=== PATIENT | female | born 1975 | race Caucasian/White ===

== ENCOUNTER 2024-12-05 20:34 | Emergency (ER) | payer MEDICARE, MEDICAID, SELFPAY ==
[2024-12-05] VITALS (20 sets, daily range): BP systolic 140–195; BP diastolic 66–126; PULSE 60–93; RESP 12–34; O2SAT 91–100
--- NOTE | 2024-12-05 20:30 | RT.EKG_ITS ---
APPROVED REPORT Exam: Resting ECG Reason for Exam: SOB Patient Location: E HR:62 bpm ECG Measurements Heart Rate 62 AXIS ND 148 P 64 QRSd 86 QRS 0 QT 431 T [id number] QTc 439 Conclusion Sinus rhythm 62 normal axis no stemi
--- NOTE | 2024-12-05 20:45 | DI.RAD_ITS ---
Exam(s) XR CHEST 2V PA LATERAL EXAM: XR CHEST 2V PA LATERAL CLINICAL HISTORY: dyspnea. TECHNIQUE: 2D digital imaging was performed. COMPARISON: No exams were available for comparison FINDINGS: 2 views: Heart size is normal. The mediastinum is not widened. Left lung is clear. There is some mild infiltrate in the lower right lung field. This measures appr oximately 4 by 2 cm. There are no pleural effusions. IMPRESSION: Suspicion for infiltrate nor right lung hall probably right middle lobe. There are no pleural effu sions. DATA REPOSITORY: RADIATION DOSE DELIVERED:
[2024-12-05] MEDS: Albuterol/Ipratropium 3 ML UPD VIAL (20:58)
[2024-12-05] MEDS: Albuterol/Ipratropium 3 ML UPD VIAL 9 ML UPD (20:58)
[2024-12-05 21:01] LABS: BE (Venous) 6 mmol/L (-2-3); HCO3 (Venous) 30 mmol/L (23-28); O2 Sat (Venous) 77 %; TCO2 (Venous) 26 mmol/L (24-29); pCO2 (Venous) 42 mmHg (41-51); pH (Venous) 7.46 (7.31-7.41); pO2 (Venous) 39 mmHg
[2024-12-05 21:03] LABS: Abs Immature Grans 0.02 10^3/uL (0.0-0.06); Absolute Basophil Count 0.05 10^3/uL (0.0-0.2); Absolute Eosinophil Count 0.68 10^3/uL (0.0-0.7); Absolute Lymphocyte Count 2.41 10^3/uL (1.2-3.4); Absolute Monocyte Count 0.72 10^3/uL (0.1-0.8); Absolute Neutrophil Count 5.57 10^3/uL (1.2-6.7); Basophils % 0.5 %; Eosinophils % 7.2 %; HCT 40.9 % (36.0-46.0); HGB 13.5 g/dL (11.2-15.7); Immature Grans % 0.2 %; Lymphocytes % 25.5 %; MCH 29.6 pg (27.0-33.0); MCV 90 fL (80-95); MPV 9.5 fL (8.0-11.0); Monocytes % 7.6 %; Platelet Count 306 10^3/uL (130-400); RBC 4.56 10^6/uL (3.93-5.22); RDW 14.1 % (11.7-14.6); RDW-SD 46.6 fL; WBC 9.45 10^3/uL (4.4-10.8)
[2024-12-05] MEDS: Normal Saline 1,000 ML 1000 ML IV (21:08)
[2024-12-05] MEDS: Albuterol/Ipratropium 3 ML UPD VIAL UPD (21:08)
[2024-12-05] MEDS: methylPREDNISolone SUCC 125 MG VIAL 80 MG IVP (21:08)
[2024-12-05 21:30] LABS: ALT 20 U/L (14-59); AST 12 U/L (15-37); Albumin 3.7 g/dL (3.4-5.0); Alkaline Phosphatase 100 U/L (46-116); Anion Gap 7.2 mmol/L (3-11); BUN 9 mg/dL (7-18); Bilirubin, Total 0.3 mg/dL (0.2-1.0); CO2 30.8 mmol/L (21.0-32.0); CREATININE 0.7 mg/dL (0.55-1.02); Calcium 9.1 mg/dL (8.5-10.1); Chloride 101 mmol/L (98-107); Estimated GFR 107.28 (mL/min/1.73m2); Glucose 102 mg/dL (74-106); NT-proBNP 46 pg/mL (<300); Potassium 4.3 mmol/L (3.5-5.1); Sodium 139 mmol/L (136-145); TSH (W/Ref FT4) 1.75 uIU/mL (0.36-3.74); Total Protein 7.5 g/dL (6.4-8.2); Troponin I 5 ng/L (<or=51)
[2024-12-05 21:30] LABS: COVID-19 PCR Negative (Negative); Influenza A PCR Negative (Negative); Influenza B PCR Negative (Negative); RSV PCR Negative (Negative)
[2024-12-05 21:31] LABS: Source Nasopharynx
[2024-12-05 21:40] LABS: ETHANOL BLOOD < 3.0 mg/dL (<10)
[2024-12-05] MEDS: ACETAMINOPHEN 1,000 MG/100 ML BTL 400 MG IVPB (22:02)
[2024-12-05] MEDS: LORazepam 20 MG/10 ML VIAL IVP (22:02)
--- NOTE | 2024-12-05 22:04 | DI.VRAD_ITS ---
PROCEDURE INFORMATION: Exam: XR Chest Exam date and time: 12/05/2024 9:28 PM Age: 49 years old Clinical indication: Dyspnea TECHNIQUE: Imaging protocol: Radiologic exam of the chest. Views: 2 views. COMPARISON: No relevant prior studies available. FINDINGS: Lungs: Unremarkable. No consolidation. Pleural spaces: Unremarkable. No pleural effusion. No pneumothorax. Heart/Mediastinum: Unremarkable. No cardiomegaly. Bones/joints: Mild degenerative disease of bilateral acromioclavicular joints. IMPRESSION: No acute cardiopulmonary process. Dictated and Authenticated by: Monty Goins MD. Orderin Lurdes Aleman MD
[2024-12-05 22:34] LABS: Troponin I 4 ng/L (<or=51)
[2024-12-05] MEDS: Albuterol HFA 8 GM 60 PUFF INH IH (23:16)
[2024-12-05] MEDS: Doxycycline Hyclate 100 MG, 2 CAPS/BTL PO (23:16)
[2024-12-05] MEDS: guaiFENesin/CODEINE PHOSPHATE 10 ML CUP PO (23:17)
--- NOTE | 2024-12-05 23:20 | ED.GENADUL_ITS ---
Discharge Plan Disposition Patient Disposition: Home Condition: Stable Discharge Details Clinical Impression: Acute exacerbation of chronic obstructive pulmonary disease (COPD) Primary Care Provider: Francisco Bishop ED Provider: Love Chatman Home Meds and New Rx's Prescriptions: New Asmanex HFA 100 mcg/actuation HFA aerosol inhaler 2 puff inhalation BID Qty: 13 0RF albuterol sulfate 90 mcg/actuation HFA aerosol inhaler 2 puff inhalation Q6H PRNQty: 8.5 0RF prednisone 20 mg tablet 40 mg PO ONCE Qty: 10 0RF lisinopril 20 mg tablet 20 mg PO DAILY Qty: 30 0RF doxycycline monohydrate 100 mg capsule 100 mg PO BID Qty: 20 0RF Discharge Instructions Instructions: COPD Exacerbation, Adult ED Additional Instructions: Try to stop smoking as this can prevent episodes such as this Take the antibiotic as prescribed Take the inhaler albuterol 2 puffs every 4 hours with spacer Use the Asmanex 2 puffs twice daily Reinitiate your lisinopril Take the prednisone daily until completed Follow-up with [facility] tomorrow and I have placed you on a referral list to establish with a primary care physician HPI General Date/Time Provider Initiated Documentation: 12/05/24 20:46 . HPI Narrative: 49-year-old female with COPD and hypertension presents with shortness of breath. Off all inhalers for 3 months, no primary care, homeless, continues to vape tobacco. Occasional alcohol use, had a couple of drinks today. No chance of . Reports cough attributed to upper respiratory infection. Chest pain with deep breathing, described as burning. No fever, chills, sick contacts, calf pain/swelling, coagulopathy, recent flights, surgeries, or long drives. Related Data Home Medications ?Medication ?Instructions ?Recorded ?Confirmed albuterol sulfate 90 mcg/actuation 2 puff inhalation Q6H PRN #8.5 12/05/24 aerosol inhaler grams doxycycline monohydrate 100 mg 100 mg PO BID #20 caps 12/05/24 capsule lisinopril 20 mg tablet 20 mg PO DAILY #30 tabs 12/05/24 mometasone 100 mcg/actuation HFA 2 puff inhalation BID #13 grams 12/05/24 aerosol inhaler (Asmanex HFA) prednisone 20 mg tablet 40 mg (2 x 20 mg) PO ONCE #10 tabs 12/05/24 Previous Rx's ?Medication ?Instructions ?Recorded albuterol sulfate 90 mcg/actuation 2 puff inhalation Q6H PRN #8.5 12/05/24 aerosol inhaler grams doxycycline monohydrate 100 mg 100 mg PO BID #20 caps 12/05/24 capsule lisinopril 20 mg tablet 20 mg PO DAILY #30 tabs 12/05/24 mometasone 100 mcg/actuation HFA 2 puff inhalation BID #13 grams 12/05/24 aerosol inhaler (Asmanex HFA) prednisone 20 mg tablet 40 mg (2 x 20 mg) PO ONCE #10 tabs 12/05/24 General Stated Complaint: SOB ESTELA: 3 Exam Narrative Exam Narrative: General Appearance: Alert and oriented. Vital signs: Respiratory rate 21, oxygen saturation 99%, temperature 36.9?C at 2300 hours, blood pressure 170/80. HEENT: Within normal limits. Respiratory: Scant scattered wheezes. Cardiovascular: Within normal limits. Gastrointestinal: Within normal limits. Genitourinary: Within normal limits. Lymphatic: Within normal limits. Back, Musculoskeletal: Reproducible chest wall tenderness. Extremities: No peripheral edema. Skin: Warm and dry, no rash. Neurological: Normal. Course Vital Signs Vital signs: Vital Signs Pulse 76 12/05/24 20:41 Respiratory Rate 34 H 12/05/24 20:41 Blood Pressure 195/126 H 12/05/24 20:41 Pulse Oximetry 100 12/05/24 20:41 Pulse 93 H 12/05/24 22:31 Pulse 93 H 12/05/24 22:40 Respiratory Rate 28 H 12/05/24 22:40 Respiratory Effort Short of Breath 12/05/24 20:44 Respiratory Depth Deep 12/05/24 20:44 Respiratory Pattern Normal 12/05/24 20:44 Blood Pressure 171/86 H 12/05/24 22:31 Blood Pressure Mean 113 12/05/24 22:31 Blood Pressure Position Sitting 12/05/24 20:41 Pulse Oximetry 99 12/05/24 22:31 Oxygen Delivery Method Room Air 12/05/24 20:41 Oxygen Flow Rate 0 12/05/24 20:41 Lab/Test Results Lab/Test Results: Laboratory Tests Range/Units 12/05/24 12/05/24 12/05/24 20:48 20:51 20:54 WBC (4.4-10.8) 10^3/uL 9.45 RBC (3.93-5.22) 10^6/uL 4.56 Hgb (11.2-15.7) g/dL 13.5 Hct (36.0-46.0) % 40.9 MCV (80-95) fL 90 MCH (27.0-33.0) pg 29.6 MCHC (32.0-36.0) % 33.0 RDW (11.7-14.6) % 14.1 Plt Count (130-400) 10^3/uL 306 MPV (8.0-11.0) fL 9.5 Immature Gran % % 0.2 Neutrophils % % 59.0 Lymphocytes % % 25.5 Monocytes % % 7.6 Eosinophils % % 7.2 Basophils % % 0.5 Nucleated RBC % (0.0-0.3) % 0.0 Absolute Neutrophils (1.2-6.7) 10^3/uL 5.57 Absolute Lymphocytes (1.2-3.4) 10^3/uL 2.41 Absolute Monocytes (0.1-0.8) 10^3/uL 0.72 Absolute Eosinophils (0.0-0.7) 10^3/uL 0.68 Absolute Basophils (0.0-0.2) 10^3/uL 0.05 VBG pH (7.31-7.41) 7.46 H VBG pCO2 (41-51) mmHg 42 VBG pO2 mmHg 39 VBG HCO3 (23-28) mmol/L 30 H VBG Total CO2 (24-29) mmol/L 26 VBG O2 Saturation % 77 VBG Base Excess (-2-3) mmol/L 6 H Sodium (136-145) mmol/L 139 Potassium (3.5-5.1) mmol/L Chloride (98-107) mmol/L Carbon Dioxide (21.0-32.0) mmol/L Anion Gap (3-11) mmol/L BUN (7-18) mg/dL Creatinine (0.55-1.02) mg/dL Est GFR (CKD-EPI 2020) (mL/min/1.73m2) Glucose (74-106) mg/dL Calcium (8.5-10.1) mg/dL Total Bilirubin (0.2-1.0) mg/dL AST (15-37) U/L ALT (14-59) U/L Alkaline Phosphatase (46-116) U/L Troponin I (<or=51) ng/L NT-Pro-B Natriuret Pep (<300) pg/mL Total Protein (6.4-8.2) g/dL Albumin (3.4-5.0) g/dL TSH (0.36-3.74) uIU/mL Ethyl Alcohol (<10) mg/dL COVID-19 Source Nasopharynx Cancelled SARS-CoV-2 (PCR) (Negative) Negative Cancelled Influenza Type A (PCR) (Negative) Negative Cancelled Influenza Type B (PCR) (Negative) Negative Cancelled RSV (PCR) (Negative) Negative Cancelled Range/Units 12/05/24 12/05/24 12/05/24 20:54 20:54 20:54 WBC (4.4-10.8) 10^3/uL RBC (3.93-5.22) 10^6/uL Hgb (11.2-15.7) g/dL Hct (36.0-46.0) % MCV (80-95) fL MCH (27.0-33.0) pg MCHC (32.0-36.0) % RDW (11.7-14.6) % Plt Count (130-400) 10^3/uL MPV (8.0-11.0) fL Immature Gran % % Neutrophils % % Lymphocytes % % Monocytes % % Eosinophils % % Basophils % % Nucleated RBC % (0.0-0.3) % Absolute Neutrophils (1.2-6.7) 10^3/uL Absolute Lymphocytes (1.2-3.4) 10^3/uL Absolute Monocytes (0.1-0.8) 10^3/uL Absolute Eosinophils (0.0-0.7) 10^3/uL Absolute Basophils (0.0-0.2) 10^3/uL VBG pH (7.31-7.41) VBG pCO2 (41-51) mmHg VBG pO2 mmHg VBG HCO3 (23-28) mmol/L VBG Total CO2 (24-29) mmol/L VBG O2 Saturation % VBG Base Excess (-2-3) mmol/L Sodium (136-145) mmol/L Cancelled Potassium (3.5-5.1) mmol/L 4.3 Cancelled Chloride (98-107) mmol/L 101 Cancelled Carbon Dioxide (21.0-32.0) mmol/L 30.8 Anion Gap (3-11) mmol/L BUN (7-18) mg/dL Creatinine (0.55-1.02) mg/dL Est GFR (CKD-EPI 2020) (mL/min/1.73m2) Glucose (74-106) mg/dL Calcium (8.5-10.1) mg/dL Total Bilirubin (0.2-1.0) mg/dL AST (15-37) U/L ALT (14-59) U/L Alkaline Phosphatase (46-116) U/L Troponin I (<or=51) ng/L NT-Pro-B Natriuret Pep (<300) pg/mL Total Protein (6.4-8.2) g/dL Albumin (3.4-5.0) g/dL TSH (0.36-3.74) uIU/mL Ethyl Alcohol (<10) mg/dL COVID-19 Source SARS-CoV-2 (PCR) (Negative) Influenza Type A (PCR) (Negative) Influenza Type B (PCR) (Negative) RSV (PCR) (Negative) Range/Units 12/05/24 12/05/24 12/05/24 20:54 20:54 20:54 WBC (4.4-10.8) 10^3/uL RBC (3.93-5.22) 10^6/uL Hgb (11.2-15.7) g/dL Hct (36.0-46.0) % MCV (80-95) fL MCH (27.0-33.0) pg MCHC (32.0-36.0) % RDW (11.7-14.6) % Plt Count (130-400) 10^3/uL MPV (8.0-11.0) fL Immature Gran % % Neutrophils % % Lymphocytes % % Monocytes % % Eosinophils % % Basophils % % Nucleated RBC % (0.0-0.3) % Absolute Neutrophils (1.2-6.7) 10^3/uL Absolute Lymphocytes (1.2-3.4) 10^3/uL Absolute Monocytes (0.1-0.8) 10^3/uL Absolute Eosinophils (0.0-0.7) 10^3/uL Absolute Basophils (0.0-0.2) 10^3/uL VBG pH (7.31-7.41) VBG pCO2 (41-51) mmHg VBG pO2 mmHg VBG HCO3 (23-28) mmol/L VBG Total CO2 (24-29) mmol/L VBG O2 Saturation % VBG Base Excess (-2-3) mmol/L Sodium (136-145) mmol/L Potassium (3.5-5.1) mmol/L Chloride (98-107) mmol/L Carbon Dioxide (21.0-32.0) mmol/L Cancelled Anion Gap (3-11) mmol/L 7.2 Cancelled BUN (7-18) mg/dL 9 Cancelled Creatinine (0.55-1.02) mg/dL 0.7 Est GFR (CKD-EPI 2020) (mL/min/1.73m2) Glucose (74-106) mg/dL Calcium (8.5-10.1) mg/dL Total Bilirubin (0.2-1.0) mg/dL AST (15-37) U/L ALT (14-59) U/L Alkaline Phosphatase (46-116) U/L Troponin I (<or=51) ng/L NT-Pro-B Natriuret Pep (<300) pg/mL Total Protein (6.4-8.2) g/dL Albumin (3.4-5.0) g/dL TSH (0.36-3.74) uIU/mL Ethyl Alcohol (<10) mg/dL COVID-19 Source SARS-CoV-2 (PCR) (Negative) Influenza Type A (PCR) (Negative) Influenza Type B (PCR) (Negative) RSV (PCR) (Negative) Range/Units 12/05/24 12/05/24 12/05/24 20:54 20:54 20:54 WBC (4.4-10.8) 10^3/uL RBC (3.93-5.22) 10^6/uL Hgb (11.2-15.7) g/dL Hct (36.0-46.0) % MCV (80-95) fL MCH (27.0-33.0) pg MCHC (32.0-36.0) % RDW (11.7-14.6) % Plt Count (130-400) 10^3/uL MPV (8.0-11.0) fL Immature Gran % % Neutrophils % % Lymphocytes % % Monocytes % % Eosinophils % % Basophils % % Nucleated RBC % (0.0-0.3) % Absolute Neutrophils (1.2-6.7) 10^3/uL Absolute Lymphocytes (1.2-3.4) 10^3/uL Absolute Monocytes (0.1-0.8) 10^3/uL Absolute Eosinophils (0.0-0.7) 10^3/uL Absolute Basophils (0.0-0.2) 10^3/uL VBG pH (7.31-7.41) VBG pCO2 (41-51) mmHg VBG pO2 mmHg VBG HCO3 (23-28) mmol/L VBG Total CO2 (24-29) mmol/L VBG O2 Saturation % VBG Base Excess (-2-3) mmol/L Sodium (136-145) mmol/L Potassium (3.5-5.1) mmol/L Chloride (98-107) mmol/L Carbon Dioxide (21.0-32.0) mmol/L Anion Gap (3-11) mmol/L BUN (7-18) mg/dL Creatinine (0.55-1.02) mg/dL Cancelled Est GFR (CKD-EPI 2020) (mL/min/1.73m2) 107.28 Cancelled Glucose (74-106) mg/dL 102 Cancelled Calcium (8.5-10.1) mg/dL 9.1 Total Bilirubin (0.2-1.0) mg/dL AST (15-37) U/L ALT (14-59) U/L Alkaline Phosphatase (46-116) U/L Troponin I (<or=51) ng/L NT-Pro-B Natriuret Pep (<300) pg/mL Total Protein (6.4-8.2) g/dL Albumin (3.4-5.0) g/dL TSH (0.36-3.74) uIU/mL Ethyl Alcohol (<10) mg/dL COVID-19 Source SARS-CoV-2 (PCR) (Negative) Influenza Type A (PCR) (Negative) Influenza Type B (PCR) (Negative) RSV (PCR) (Negative) Range/Units 12/05/24 12/05/24 12/05/24 20:54 20:54 20:54 WBC (4.4-10.8) 10^3/uL RBC (3.93-5.22) 10^6/uL Hgb (11.2-15.7) g/dL Hct (36.0-46.0) % MCV (80-95) fL MCH (27.0-33.0) pg MCHC (32.0-36.0) % RDW (11.7-14.6) % Plt Count (130-400) 10^3/uL MPV (8.0-11.0) fL Immature Gran % % Neutrophils % % Lymphocytes % % Monocytes % % Eosinophils % % Basophils % % Nucleated RBC % (0.0-0.3) % Absolute Neutrophils (1.2-6.7) 10^3/uL Absolute Lymphocytes (1.2-3.4) 10^3/uL Absolute Monocytes (0.1-0.8) 10^3/uL Absolute Eosinophils (0.0-0.7) 10^3/uL Absolute Basophils (0.0-0.2) 10^3/uL VBG pH (7.31-7.41) VBG pCO2 (41-51) mmHg VBG pO2 mmHg VBG HCO3 (23-28) mmol/L VBG Total CO2 (24-29) mmol/L VBG O2 Saturation % VBG Base Excess (-2-3) mmol/L Sodium (136-145) mmol/L Potassium (3.5-5.1) mmol/L Chloride (98-107) mmol/L Carbon Dioxide (21.0-32.0) mmol/L Anion Gap (3-11) mmol/L BUN (7-18) mg/dL Creatinine (0.55-1.02) mg/dL Est GFR (CKD-EPI 2020) (mL/min/1.73m2) Glucose (74-106) mg/dL Calcium (8.5-10.1) mg/dL Cancelled Total Bilirubin (0.2-1.0) mg/dL 0.3 Cancelled AST (15-37) U/L 12 L Cancelled ALT (14-59) U/L 20 Alkaline Phosphatase (46-116) U/L Troponin I (<or=51) ng/L NT-Pro-B Natriuret Pep (<300) pg/mL Total Protein (6.4-8.2) g/dL Albumin (3.4-5.0) g/dL TSH (0.36-3.74) uIU/mL Ethyl Alcohol (<10) mg/dL COVID-19 Source SARS-CoV-2 (PCR) (Negative) Influenza Type A (PCR) (Negative) Influenza Type B (PCR) (Negative) RSV (PCR) (Negative) Range/Units 12/05/24 12/05/24 12/05/24 20:54 20:54 20:54 WBC (4.4-10.8) 10^3/uL RBC (3.93-5.22) 10^6/uL Hgb (11.2-15.7) g/dL Hct (36.0-46.0) % MCV (80-95) fL MCH (27.0-33.0) pg MCHC (32.0-36.0) % RDW (11.7-14.6) % Plt Count (130-400) 10^3/uL MPV (8.0-11.0) fL Immature Gran % % Neutrophils % % Lymphocytes % % Monocytes % % Eosinophils % % Basophils % % Nucleated RBC % (0.0-0.3) % Absolute Neutrophils (1.2-6.7) 10^3/uL Absolute Lymphocytes (1.2-3.4) 10^3/uL Absolute Monocytes (0.1-0.8) 10^3/uL Absolute Eosinophils (0.0-0.7) 10^3/uL Absolute Basophils (0.0-0.2) 10^3/uL VBG pH (7.31-7.41) VBG pCO2 (41-51) mmHg VBG pO2 mmHg VBG HCO3 (23-28) mmol/L VBG Total CO2 (24-29) mmol/L VBG O2 Saturation % VBG Base Excess (-2-3) mmol/L Sodium (136-145) mmol/L Potassium (3.5-5.1) mmol/L Chloride (98-107) mmol/L Carbon Dioxide (21.0-32.0) mmol/L Anion Gap (3-11) mmol/L BUN (7-18) mg/dL Creatinine (0.55-1.02) mg/dL Est GFR (CKD-EPI 2020) (mL/min/1.73m2) Glucose (74-106) mg/dL Calcium (8.5-10.1) mg/dL Total Bilirubin (0.2-1.0) mg/dL AST (15-37) U/L ALT (14-59) U/L Cancelled Alkaline Phosphatase (46-116) U/L 100 Cancelled Troponin I (<or=51) ng/L 5 NT-Pro-B Natriuret Pep (<300) pg/mL 46 Cancelled Total Protein (6.4-8.2) g/dL 7.5 Albumin (3.4-5.0) g/dL TSH (0.36-3.74) uIU/mL Ethyl Alcohol (<10) mg/dL COVID-19 Source SARS-CoV-2 (PCR) (Negative) Influenza Type A (PCR) (Negative) Influenza Type B (PCR) (Negative) RSV (PCR) (Negative) Range/Units 12/05/24 12/05/24 12/05/24 20:54 20:54 20:54 WBC (4.4-10.8) 10^3/uL RBC (3.93-5.22) 10^6/uL Hgb (11.2-15.7) g/dL Hct (36.0-46.0) % MCV (80-95) fL MCH (27.0-33.0) pg MCHC (32.0-36.0) % RDW (11.7-14.6) % Plt Count (130-400) 10^3/uL MPV (8.0-11.0) fL Immature Gran % % Neutrophils % % Lymphocytes % % Monocytes % % Eosinophils % % Basophils % % Nucleated RBC % (0.0-0.3) % Absolute Neutrophils (1.2-6.7) 10^3/uL Absolute Lymphocytes (1.2-3.4) 10^3/uL Absolute Monocytes (0.1-0.8) 10^3/uL Absolute Eosinophils (0.0-0.7) 10^3/uL Absolute Basophils (0.0-0.2) 10^3/uL VBG pH (7.31-7.41) VBG pCO2 (41-51) mmHg VBG pO2 mmHg VBG HCO3 (23-28) mmol/L VBG Total CO2 (24-29) mmol/L VBG O2 Saturation % VBG Base Excess (-2-3) mmol/L Sodium (136-145) mmol/L Potassium (3.5-5.1) mmol/L Chloride (98-107) mmol/L Carbon Dioxide (21.0-32.0) mmol/L Anion Gap (3-11) mmol/L BUN (7-18) mg/dL Creatinine (0.55-1.02) mg/dL Est GFR (CKD-EPI 2020) (mL/min/1.73m2) Glucose (74-106) mg/dL Calcium (8.5-10.1) mg/dL Total Bilirubin (0.2-1.0) mg/dL AST (15-37) U/L ALT (14-59) U/L Alkaline Phosphatase (46-116) U/L Troponin I (<or=51) ng/L NT-Pro-B Natriuret Pep (<300) pg/mL Total Protein (6.4-8.2) g/dL Cancelled Albumin (3.4-5.0) g/dL 3.7 Cancelled TSH (0.36-3.74) uIU/mL 1.75 Cancelled Ethyl Alcohol (<10) mg/dL < 3.0 COVID-19 Source SARS-CoV-2 (PCR) (Negative) Influenza Type A (PCR) (Negative) Influenza Type B (PCR) (Negative) RSV (PCR) (Negative) Range/Units 12/05/24 22:14 WBC (4.4-10.8) 10^3/uL RBC (3.93-5.22) 10^6/uL Hgb (11.2-15.7) g/dL Hct (36.0-46.0) % MCV (80-95) fL MCH (27.0-33.0) pg MCHC (32.0-36.0) % RDW (11.7-14.6) % Plt Count (130-400) 10^3/uL MPV (8.0-11.0) fL Immature Gran % % Neutrophils % % Lymphocytes % % Monocytes % % Eosinophils % % Basophils % % Nucleated RBC % (0.0-0.3) % Absolute Neutrophils (1.2-6.7) 10^3/uL Absolute Lymphocytes (1.2-3.4) 10^3/uL Absolute Monocytes (0.1-0.8) 10^3/uL Absolute Eosinophils (0.0-0.7) 10^3/uL Absolute Basophils (0.0-0.2) 10^3/uL VBG pH (7.31-7.41) VBG pCO2 (41-51) mmHg VBG pO2 mmHg VBG HCO3 (23-28) mmol/L VBG Total CO2 (24-29) mmol/L VBG O2 Saturation % VBG Base Excess (-2-3) mmol/L Sodium (136-145) mmol/L Potassium (3.5-5.1) mmol/L Chloride (98-107) mmol/L Carbon Dioxide (21.0-32.0) mmol/L Anion Gap (3-11) mmol/L BUN (7-18) mg/dL Creatinine (0.55-1.02) mg/dL Est GFR (CKD-EPI 2020) (mL/min/1.73m2) Glucose (74-106) mg/dL Calcium (8.5-10.1) mg/dL Total Bilirubin (0.2-1.0) mg/dL AST (15-37) U/L ALT (14-59) U/L Alkaline Phosphatase (46-116) U/L Troponin I (<or=51) ng/L 4 NT-Pro-B Natriuret Pep (<300) pg/mL Total Protein (6.4-8.2) g/dL Albumin (3.4-5.0) g/dL TSH (0.36-3.74) uIU/mL Ethyl Alcohol (<10) mg/dL COVID-19 Source SARS-CoV-2 (PCR) (Negative) Influenza Type A (PCR) (Negative) Influenza Type B (PCR) (Negative) RSV (PCR) (Negative) Medical Decision Making Laboratory Studies BMP and troponin reassuring. No leukocytosis. Imaging Chest x-ray shows no acute abnormality. Initial Assessment: 49-year-old female with history of COPD and hypertension presents with shortness of breath and burning chest pain. Differential Diagnosis: - Clinical suspicion for PE, no exogenous hormones or history of similar. ED Course: - Chest x-ray per radiology interpretation and my review does not show evidence of acute abnormality. - Physical exam: patient alert and oriented, respiratory distress with intercostal muscle usage, diminished peripheral edema, reproducible chest wall tenderness. - BMP, troponin, chest x-ray reassuring, no leukocytosis. - Given three DuoNebs immediately upon arrival, marked improvement. - Pain with breathing addressed with 2.5 cc lidocaine in fluid, almost complete resolution. - Hyperventilation managed with 1 mg Ativan, now resting comfortably in room. - Scant scattered wheezes, oxygen saturation 99% on room air. - Respiratory rate 21, oxygen 99%, temperature 36.9 at 2300, blood pressure 170/50. - Received Solu-Medrol, prednisone, Asmanex inhaler supplied, albuterol with spacer. - [facility] referral and PCP referral for close outpatient reassessment. - Return precautions reviewed. Final Assessment: Patient presented with shortness of breath and burning chest pain. Diagnostic labs and imaging were reassuring. Treatment included DuoNebs, lidocaine, Ativan, Solu-Medrol, prednisone, Asmanex inhaler, and albuterol with spacer. Patient showed marked improvement and was discharged home in stable condition with improved vitals. Clinical Impression: - COPD - Hypertension Disposition: - Discharge: Patient discharged home in stable condition. - Follow-Up: [facility] referral and PCP referral for close outpatient reassessment. MDM Components Evaluation: - Number of Differential Diagnoses or Management Options: Clinical suspicion for PE. - Amount and Complexity of Data Reviewed: Chest x-ray, BMP, troponin, physical exam findings. - Risk of Complication and Morbidity or Mortality: Moderate risk due to history of COPD and hypertension, potential for respiratory distress and elevated blood pressure. Quality:[facility] Health Related Social Needs: No Data to Display Critical Care Time Critical Care Time Attestation: 35 minutes of critical care time secondary to DuoNeb administration telemetry monitoring Solu-Medrol administration diagnostic lab interpretation review diagnostic imaging interpretation and review PFSH All Active Problems (Updated 12/05/24 @ 22:50 by JOSE Kellogg) Acute exacerbation of chronic obstructive pulmonary disease (COPD) (Acute) Social History Smoking/Tobacco Use Status: Current every day Smoking risk assessment performed?: Yes Alcohol Intake: current Alcohol Intake frequency: a few times a month Substance use type: marijuana
--- NOTE | 2024-12-07 12:18 | NUR.NOTE ---
Access chart to view who the PCP was. Provider not from this area. Nursing Note:
== END 2024-12-05 23:44 | disposition home or self-care (01) ==
PROVIDERS: Emergency Provider Physician Assistant; PCP Family Medicine
DX: J44.1 Chronic obstructive pulmonary disease with (acute) exacerbation (principal)
CPT/HCPCS: 99291; 96375; 94640; 36415; 80053; 82805; 87637; 93005; 96361; 96365; 71046; 80320; 83880; 84443; 84484; 85025; 93010; J0131; J2060; J2919; J7620